=== PATIENT | female | born 1960 | race Caucasian/White ===

== ENCOUNTER → 2016-12-13 | Outpatient (CLI) | payer OTHER ==
[2016-07-03 10:17] VITALS: BP 123/63
[~2016-12-13] MED LIST: CYCL10TA2 PO; HYDR-2666 PO; METH-38 PO; ONDA4TAB7 PO; OXYC-323 PO; TRAM50TA PO
--- NOTE | 2016-12-13 14:26 | KCIC ---
PROCEDURE MR of the right humerus HISTORY Right arm pain and weakness, notice 1 month ago and getting worse. Pain is greatest at the biceps muscle. No injury. COMPARISON None TECHNIQUE Standard multiplanar sequences obtained with a large [id number] through the left humerus FINDINGS Muscle tissue is intact. Specifically, the biceps muscle is unremarkable. No abnormal hematoma or soft tissue edema. There is some mild cortical thickening and cortical signal within the humeral diaphysis. This does not appear acute. There is no evidence of aggressive cortical destruction or acute periosteal reaction. There is no evidence of destructive or aggressive bone lesion or marrow pathology. Mild heterogeneity of the proximal humeral bone marrow is likely due to some red marrow conversion. Incidentally noted is a partially visualized small right glenohumeral joint effusion. IMPRESSION Mild cortical thickening and cortical signal within the humeral diaphysis. This has a chronic and likely reactive appearance. Some marrow heterogeneity at the proximal humerus is likely due to red marrow reconversion. No definite active or aggressive bone pathology is seen. If there is continued clinical concern, nuclear medicine bone scan could be of benefit. Electronically signed by: Santos Ferris MD (Dec 13, 2016 14:25:43)
== END | disposition home or self-care (01) ==
LOC: KCIC MRI 12:49
PROVIDERS: ATTEND Nurse Practitioner Family
DX: M25.411 Effusion, right shoulder (principal); R53.1 Weakness
CPT/HCPCS: 73218